=== PATIENT | female | born 1965 | race Caucasian/White ===

== ENCOUNTER 2016-05-09 09:16 | Emergency (ER) | END 2016-05-09 11:47 | disposition home or self-care (01) | DX: M79.7 Fibromyalgia (principal); J06.9 Acute upper respiratory infection, unspecified | CPT/HCPCS: 71010; 96372; J1885; Z7502 ==

== ENCOUNTER 2018-10-29 09:30 | Day surgery (SDC) | payer OTHER ==
[~2018-10-29] VITALS: Ht 154.9 cm; Wt 71.5 kg
[~2018-10-29 09:30] MED LIST: BENZ-6 PO; GUAI5SYR2 PO; HYDR-4011 PO
[2018-10-29] MEDS ORDERED: GABAPENTIN (10:25)
[2018-10-29] MEDS ORDERED: HYDROXYCHLOROQUINE (10:25)
[2018-10-29] MEDS ORDERED: ATORVASTATIN (10:25)
[2018-10-29] MEDS ORDERED: TRAZODONE (10:25)
[2018-10-29] MEDS ORDERED: TRAMADOL (10:25)
[2018-10-29] MEDS ORDERED: OMEPRAZOLE (10:25)
[2018-10-29] MEDS ORDERED: NORCO (10:25)
[2018-10-29] MEDS ORDERED: SULFASALAZINE (10:25)
[2018-10-29 10:31] VITALS: Ht 154.9 cm; Wt 71.5 kg
--- NOTE | 2018-10-29 10:45 | PREAC ---
Date/Time of Note Date/Time of Note DATE: 10/29/18 TIME: 10:43 Anesthesia Eval and Record Evaluation Time Pre-Procedure Interview DATE: 10/29/18 TIME: 10:43 Age 53 Sex female NPO: 8 hrs Preoperative diagnosis abd pain; + occult blood Planned procedure EGD/Colonoscopy Past Medical History Past Medical History: Includes (fibromyalgia; fatty liver) Cardio: Dyslipidemia Pulm: Smoking Hx Musculoskeletal: Rheumatoid arthritis Surgery & Anesthesia Issues No known issue (spinal disc sx) Meds Anticoagulation: No Beta Jax within 24 hr: No Reason Beta Jax not given: Pt. not on B-Jax Active Scripts Hydrocodone/Acetaminophen ([place] 5-325 Tablet) 1 Each Tablet, 1 TAB PO Q6H PRN for PAIN, #7 TAB Prov:SELVIN GAINES PA-C 05/09/16 Reported Medications [Atorvastatin] No Conflict Check 10/29/18 [Hydroxychloroquine] No Conflict Check 10/29/18 [Trazodone] No Conflict Check 10/29/18 [[place]] No Conflict Check 10/29/18 [Tramadol] No Conflict Check 10/29/18 [Sulfasalazine] No Conflict Check 10/29/18 [Gabapentin] No Conflict Check 10/29/18 [Omeprazole] No Conflict Check 10/29/18 Discontinued Scripts Guaifenesin-Dextromethorphan* (Robitussin* DM) 100MG/10MG/5ML Syrup, 5 ML PO Q4H PRN for COUGH for 14 Days, ML Prov:SELVIN GAINES PA-C 05/09/16 Benzonatate* (Tessalon Perle*) 100 Mg Capsule, 100 MG PO Q8H PRN for COUGH for 14 Days, CAP Prov:SELVIN GAINES PA-C 05/09/16 Meds reviewed: Yes Allergies Allergies Reviewed: Yes Labs/Studies Labs Reviewed: Reviewed by anesthesiologist test: N/A Pre-procedure Exam Airway: Adequate mouth opening, Adequate thyromental dist Mallampati: Mallampati II Teeth: Normal Lung: Normal Heart: Normal ASA Physical Status ASA physical status: 2 Emergency: None Planned Anesthetic General/MAC: MAC Pre-operative Attestations Prior to commencing anesthesia and surgery, the patient was re-evaluated, there was verification of: *The patient's identity *The results of appropriate recent lab work and preoperative vital signs *The above evaluation not changing prior to induction *Anesthetic plan, risk benefits, alternative and complications discussed with patient/family; questions answered; patient/family understands, accepts and wishes to proceed. SAEED SULLIVAN Oct 29, 2018 10:45
[2018-10-29] MEDS ORDERED: LIDOCAINE 2% (SDV) 5 ML INJ ONE (10:48)
[2018-10-29] MEDS ORDERED: PROPOFOL 60 ML ONE (10:48)
[2018-10-29] MEDS ORDERED: ALBUTEROL 0.083% (NEB) 2.5 MG/3 ML AMP HHN PRN (11:00)
[2018-10-29] MEDS ORDERED: FENTAnyl 50 MCG/ML VIAL IV PRN ×2 (11:00)
[2018-10-29] MEDS ORDERED: EPHEDrine 25 MG/5 ML SYG IV PRN (11:00)
[2018-10-29] MEDS ORDERED: hydrALAzine 20 MG INJ IV PRN (11:00)
[2018-10-29] MEDS ORDERED: LABETALOL HCL 20MG INJ IV PRN (11:00)
[2018-10-29] MEDS ORDERED: ONDANSETRON 4 MG INJ IV PRN (11:00)
[2018-10-29 11:01] VITALS: BP 106/55; PULSE 64; RESP 16
[2018-10-29 12:16] VITALS: BP 115/67; PULSE 61; RESP 20
--- NOTE | 2018-10-30 07:28 | CONS ---
DATE OF ADMISSION: 10/29/2018 DATE OF CONSULTATION: PATIENT NAME: ROBERT YUEN PREOPERATIVE GASTROENTEROLOGY CONSULTATION Dear Dr. Mcduffie: I thank you very much for this kind referral. Ms. Morena Yuen is a 53-year-old female patient who h as been referred to me for further evaluation of positive occult blood in stool. The patient denies any history of rectal bleeding. She has lower abdominal pain. No past history of colon neoplasm. S he never had screening colonoscopy. She also complains of upper abdominal pain and heartburn, not re sponding to therapy with omeprazole. Not on nonsteroidal anti-inflammatory agents. No history of ga llstones, has history of fatty liver. No history of hypertension or diabetes. No heart disease, jaime g problem, or kidney disease. She has hyperlipidemia. The patient has rheumatoid arthritis and fibr omyalgia. She is on multiple medications, including [place] and tramadol. SOCIAL HISTORY: She is a smoker. Denies alcohol abuse. FAMILY HISTORY: No family history of gastrointestinal tract neoplasm. ALLERGIES: SHE IS ALLERGIC TO ASPIRIN AND IBUPROFEN. MEDICATIONS: 1. Omeprazole 40 mg p.o. daily. 2. Gabapentin. 3. Sulfasalazine. 4. Tramadol. 5. [place]. 6. Trazodone. 7. Hydroxychloroquine. 8. Atorvastatin. PHYSICAL EXAMINATION: GENERAL: She is 5 feet 3 inches tall and weighs 162 pounds. HEART: Normal heart sounds. LUNGS: Clear. ABDOMEN: Soft, no masses. Normal bowel sounds. NEUROLOGIC: Normal neurological exam. IMPRESSION: 1. Positive occult blood in stool. 2. Lower abdominal pain. 3. The patient never had screening colonoscopy. 4. Upper abdominal pain and chronic heartburn, not completely responding to therapy with omeprazole. 5. Hyperlipidemia. 6. Rheumatoid arthritis. 7. Fibromyalgia. 8. History of fatty liver. 9. The patient is a smoker. 10. ALLERGY TO IBUPROFEN AND ASPIRIN. PLAN: 1. The patient was strongly advised to lose weight and have a good control of serum lipids because o f the fatty liver. 2. The patient was advised to stop smoking. 3. Screening colonoscopy and upper endoscopy for further evaluation. 4. Because of the use of pain medications including [place] and tramadol, she will be resistant to ronan cotics and she needs monitored anesthesia care. The procedures and possible complications are well explained to the patient. She understands and con sents to the procedures. I thank you once again. With warmest personal regards, Dictated By: LAURA DOMÍNGUEZ/PHI Conf#: [id number] DID#: [id number]
== END 2018-10-29 13:28 | disposition home or self-care (01) ==
LOC: GIL 09:30
PROVIDERS: ATTEND Internal Medicine Gastroenterology
DX: K92.1 Melena (principal); K64.8 Other hemorrhoids; K57.30 Diverticulosis of large intestine without perforation or abscess without bleeding; K21.9 Gastro-esophageal reflux disease without esophagitis; E78.5 Hyperlipidemia, unspecified; D12.3 Benign neoplasm of transverse colon; F17.200 Nicotine dependence, unspecified, uncomplicated; M06.9 Rheumatoid arthritis, unspecified
CPT/HCPCS: 43239; 45380; 88305; Z7610